=== PATIENT | male | born 1990 | race Caucasian/White ===

== ENCOUNTER 2022-09-30 07:49 | Emergency (ER) | payer MEDICAID ==
[~2022-09-30] VITALS: Ht 175.3 cm; Wt 81.6 kg
[2022-09-30 07:50] VITALS: BP 134/85
--- NOTE | 2022-09-30 07:58 | NUR ---
W/C ASSISTED TO BED 09.
--- NOTE | 2022-09-30 09:13 | NUR ---
COVID SWAB COLLECTED AND SENT TO LAB
--- NOTE | 2022-09-30 09:45 | NUR ---
[facility] [phone] CALL TO REPORT ONCE TRANSPORT IS HERE.
--- NOTE | 2022-09-30 10:56 | NUR ---
[facility] AT BEDSIDE FOR TRANSPORT
[2022-09-30 11:06] VITALS: BP 152/92
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
== END 2022-09-30 11:06 | disposition short-term general hospital (02) ==
LOC: MED 07:49
DX: T25.222A Burn of second degree of left foot, initial encounter (principal); T25.212A Burn of second degree of left ankle, initial encounter; Z20.822 Contact with and (suspected) exposure to COVID-19; X11.8XXA Contact with other hot tap-water, initial encounter; Y93.89 Activity, other specified; Y92.89 Other specified places as the place of occurrence of the external cause; Y99.8 Other external cause status
CPT/HCPCS: 90471; 90715; 99285

== ENCOUNTER 2022-10-26 17:24 | Emergency (ER) | payer MEDICAID ==
[~2022-10-26] VITALS: Ht 172.7 cm; Wt 81.6 kg
[2022-10-26 18:04] VITALS: BP 130/82
[2022-10-26] MEDS ORDERED: IBUP-2213 PO (20:49)
[2022-10-26 21:20] VITALS: BP 135/75
--- NOTE | 2022-10-26 21:21 | NUR ---
Patient discharged with v/s stable. Written and verbal after care instructions given and explained. Patient verbalized understanding. Ambulatory with steady gait. All questions addressed prior to discharge. Advised to follow up with PMD.
== END 2022-10-26 21:17 | disposition home or self-care (01) ==
LOC: MED 17:24
DX: R07.9 Chest pain, unspecified (principal); R03.0 Elevated blood-pressure reading, without diagnosis of hypertension
CPT/HCPCS: 71045; 93005; 99283

== ENCOUNTER 2022-12-19 01:20 | Emergency (ER) | payer MEDICAID ==
[~2022-12-19] VITALS: Ht 175.3 cm; Wt 81.6 kg
[2022-12-19 01:20] VITALS: BP 135/83; PULSE 92; RESP 17; TEMP 97.8; TEMP 98; O2SAT 98
[~2022-12-19 01:20] MED LIST: IBUP-2213 PO
--- NOTE | 2022-12-19 01:21 | NUR ---
PT TAKEN TO BED 10
--- NOTE | 2022-12-19 01:24 | NUR ---
Dr. Clayton examining patient.
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
[2022-12-19] MEDS ORDERED: LIDOCAINE 1% 500 MG/ 50 ML VIAL INJ ONE (01:40)
--- NOTE | 2022-12-19 01:40 | NUR ---
[place] [facility] AT BEDSIDE
[2022-12-19] MEDS ORDERED: LIDOCAINE MPF 1% 10 ML ONE ×2 (01:41→01:43)
--- NOTE | 2022-12-19 01:53 | NUR ---
Dr. Clayton at bedside
== END 2022-12-19 02:00 | disposition home or self-care (01) ==
LOC: MED 01:20
DX: S51.812A Laceration without foreign body of left forearm, initial encounter (principal); Y04.0XXA Assault by unarmed brawl or fight, initial encounter; Y93.89 Activity, other specified; Y92.89 Other specified places as the place of occurrence of the external cause; Y99.8 Other external cause status
CPT/HCPCS: 12002; 99283; J2001

== ENCOUNTER 2022-12-26 11:41 | Emergency (ER) | payer MEDICAID ==
[~2022-12-26] VITALS: Ht 175.3 cm; Wt 81.6 kg
[2022-12-26 11:51] VITALS: BP 133/91; PULSE 76; RESP 16; TEMP 98.7; O2SAT 97
[2022-12-26] MEDS ORDERED: BACITRACIN OINT 500 UNITS/GM PKT TP ONE ×2 (12:16→12:35)
[2022-12-26] MEDS ORDERED: BACI-418 TP (12:23)
--- NOTE | 2022-12-26 12:32 | NUR ---
Patient discharged with v/s stable. Written and verbal after care instructions FOR SUTURE REMOVAL given and explained. Patient alert, oriented and verbalized understanding of instructions. Ambulatory with steady gait. All questions addressed prior to discharge. ID band removed. Patient advised to follow up with PMD. Rx of BACITRACIN OINT given. Opportunity to ask questions provided and answered.
== END 2022-12-26 12:32 | disposition home or self-care (01) ==
LOC: MED 11:41
DX: S41.112D Laceration without foreign body of left upper arm, subsequent encounter (principal); X58.XXXD Exposure to other specified factors, subsequent encounter
CPT/HCPCS: 99282